=== PATIENT | male | born 1960 | race Caucasian/White ===

== ENCOUNTER 2016-09-24 17:23 | Inpatient (IN) | payer OTHER ==
--- NOTE | ~2016-09-24 | OR ---
Unit #: [id number] #: [id number] Patient: WILLIAM WHITFIELD [id number] [facility] [address] [place], [place] [address] [id number] MR#: [id number] NAME: WILLIAM WHITFIELD ROOM: 452 Date of Procedure: 09/25/2016 Admission Date: 09/24/2016 Surgeon: Gio Lofton M.D. : 1960 Attending Physician: Lisette Herndon M.D. PROCEDURE OPERATIVE NOTE PREOPERATIVE DIAGNOSIS Left hip intertrochanteric fracture. POSTOPERATIVE DIAGNOSIS Left hip intertrochanteric fracture. PROCEDURE PERFORMED Left hip intramedullary nailing. 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 ANESTHESIA General anesthesia. COMPLICATIONS None. ESTIMATED BLOOD LOSS 300 mL. INDICATION FOR SURGERY Mr. Whitfield is a 56-year-old gentleman with history of alcohol abuse, who sustained a left intertrochanteric femur fracture. He had delayed presentation secondary to being put in bed a day after he was fractured. He presented to [facility] Emergency Room, where he was diagnosed with an intertrochanteric femur fracture. He was transferred to [facility], where he was admitted and Orthopedics was consulted for definitive management. Risks and benefits of left intertrochanteric femur fracture were discussed and management was discussed in detail. Risks of fracture, malunion, nonunion, painful hardware, need for hardware removal, avascular necrosis, DVT, PE, need for additional surgery, and . Questions were answered to his satisfaction. Informed consent was obtained and placed in the chart. DESCRIPTION OF PROCEDURE After the patient was identified in preoperative holding area, the operative site was marked. The patient was brought to the operative suite, placed supine on the operating room table. General endotracheal anesthesia was placed uneventfully. Placed on a [place] hip table. The left lower extremity was placed against the longitudinal traction against the perineal post. Closed reduction was performed using C-arm guidance. Unit #: [id number] #: [id number] Patient: WILLIAM WHITFIELD Then, the left lower extremity was prepped and draped in usual sterile fashion. IV antibiotics were infused. Time-out procedure was performed. Then making a 2-inch incision superior to the greater trochanter was made with #10 blade scalpel. The IT band was split longitudinally inline with the incision. Sharp tipped awl was placed in the tip of the greater trochanter and placed in the medullary canal. A ball-tip guidewire was placed, then the trochanteric drill was used to open up the trochanter proximally and the nail was then placed in 125-degree neck angle short nail from Nico, 10 mm in diameter. It was then placed over the guidewire in the appropriate depth. Then, using additional stab incision in the lateral thigh, which was used for splitting the skin and the IT band laterally, and the threaded K-wire was placed to be center to center in both AP and lateral images into the femoral head, measured 95 mm in length. A CareXtend drill was then used to drill up in the femoral head and the lag screw was then placed into the femoral head. Then, traction was taken off the extremity, it was then compressed against the outrigger guide, and the set screw was placed proximally backed off a quarter turn to allow further compression with weightbearing. Following this, the distal cortical screw was made through additional separate incision using C-arm guidance. It measured 30 mm in length and this was placed uneventfully. Final C-arm images were obtained. AP, lateral, and oblique views showed good fracture reduction and hardware placement. The outrigger guide was removed. The wound was copiously irrigated with sterile saline, 0 Vicryl was used to close the fascial layer. A 2-0 Vicryl was used to close the deep dermis, anu used to close the skin. Sterile dressings were applied. He was awakened from anesthesia, returned to recovery room in stable condition. No intraoperative complications. Dictated by... Pako Rodríguez/goldy TD: 09/25/2016 11:06 JOB #: [id number] PROCEDURE OPERATIVE NOTE Page 1 of 1 X Gio Lofton MD X PROCEDURE OPERATIVE NOTE
--- NOTE | ~2016-09-24 | HP ---
Unit #: [id number] #: [id number] Patient: WILLIAM WHITFIELD [id number] [facility] [address] [facility]. [place], [place] [address] [id number] I MR#: [id number] NAME: WILLIAM WHITFIELD ROOM: 327 Age: 56 Sex: M Admission Date: 09/24/2016 : 1960 Attending Physician: Nessa Coe M.D. Primary Care Physician: No Primary Care Physician HISTORY AND PHYSICAL CHIEF COMPLAINT Fall with left femur neck fracture. DISCUSSION This is a 56-year-old gentleman who has a past medical history of hypertension, acid reflux, degenerative disk disease of the spine, peripheral neuropathy, alcohol abuse, tobacco abuse, marijuana abuse. He said he slipped on hardwood floor last night and then his son helped him to bed. Today he woke up and was unable to ambulate with left hip pain, and he came to [facility] ER. He had workup with x-ray of hip showing proximal left femoral neck fracture, and he has been admitted to [facility]. He denied chest pain. He denies fever, chills, coronary artery disease, diabetes. He says he walks many blocks without shortness of breath, although he has chronic back pain and nerve pain. Besides that, no chest pain. He denies any other complaint. PAST MEDICAL HISTORY 1. History of hypertension. 2. Gastroesophageal reflux disease. 3. Peripheral neuropathy/degenerative disk disease of spine. 4. History of alcohol and tobacco abuse. PAST SURGICAL HISTORY Appendectomy. SOCIAL HISTORY He smokes 1 pack daily for 40 years. He uses a 6 pack of alcohol on a daily basis. He uses marijuana on a daily basis. Denies cocaine or IV heroin use, but he uses marijuana on a daily basis. FAMILY HISTORY He said diabetes runs in the family. Mother has heart problems. MEDICATIONS FROM HOME He does not remember the doses. Will call the pharmacy to find his medications from the pharmacy. Unavailable at this time of dictation. REVIEW OF SYSTEMS All review of systems is negative except as in history of present illness. PHYSICAL EXAMINATION GENERAL: Middle-aged man lying in bed comfortably, currently not in any distress. He is alert, awake, oriented x3. Unit #: [id number] #: [id number] Patient: WILLIAM WHITFIELD CURRENT VITALS: Temperature is 98.8, heart rate 97, respiratory rate 20, blood pressure 139/93. HEENT: Pupils are equal and reactive to light. Head is normocephalic and atraumatic. NECK: Neck is supple. No JVD. HEART: S1, S2. Regular rate and rhythm. LUNGS: Lungs are clear to auscultation bilaterally. No rhonchi. No wheezing. ABDOMEN: Abdomen is soft, nontender, nondistended. Bowel sounds are positive. EXTREMITIES: Inspection is normal. No cyanosis. No clubbing. No edema. NEUROLOGIC: Unable to do motor exam secondary to left hip fracture, but cranial nerves II-XII intact. DIAGNOSTIC STUDIES LABORATORY WORKUP: White count is 7.4, hemoglobin 12, hematocrit 35, platelets 112. Chemistry - Sodium 124, potassium 3.5, chloride 93, CO2 21, glucose 92, BUN 7, creatinine 0.8. LFTs - Alkaline phosphatase 116; otherwise, normal LFTs. Urine toxicology is positive for marijuana. UA is negative. His alcohol level is less than 5. IMAGING: X-ray of the left hip shows proximal comminuted, mildly displaced proximal left femoral neck fracture. ASSESSMENT AND PLAN 1. Status post fall with comminuted mildly displaced proximal left femoral neck fracture. Will admit the patient. Ask orthopedics, Dr. Lofton, to evaluate. He was also asked from the emergency room. 2. Thrombocytopenia, most likely secondary to chronic alcohol use. 3. Hyponatremia, most likely secondary to beer potomania. 4. Hypertension. Place on hydralazine on a p.r.n. basis. Find out his home medications. 5. History of gastroesophageal reflux disease. 6. History of degenerative disk disease of spine/peripheral neuropathy. 7. Marijuana use. 8. Alcohol abuse. Will place the patient on Clinical [place] Withdrawal Assessment protocol. 9. Tobacco abuse. 10. Deep vein thrombosis prophylaxis. Will place the patient on Lovenox 40 mg subcu daily. 1. Dictated by Pako Sterling/mike TD: 09/25/2016 11:39 JOB #: [id number] Unit #: [id number] #: [id number] Patient: WILLIAM WHITFIELD HISTORY AND PHYSICAL Page 1 of 1 X X HISTORY AND PHYSICAL
--- NOTE | ~2016-09-24 | CR72 ---
[facility] A Service of [facility] & [facility] RADIOLOGY TEXT RESULTS PATIENT: WILLIAM WHITFIELD LOCATION: [facility] 327-01 : [birth year] UNIT #: [id number] AGE: [address]: Nessa Coe MD SEX: M ORDER DR: [id number] [facility] [address] [facility]. [place], [place] [address] [id number] I MR#: [id number] Acc #: [id number] NAME: WILLIAM WHITFIELD : 1960 SEX: M STUDY DATE/TIME: 09/25/2016 02:06 UNIT: [address] ROOM: [facility] STUDY DESCRIPTION: CR Chest Single View Portable Attending Physician: Nessa Coe M.D. Ordering Physician: Jerry Reyes M.D. Primary Care Physician: Primary Care Physician No MEDICAL IMAGING REPORT This report is preliminary unless electronic signature is present EXAM Portable chest, 09/25 at 02:06 INDICATION Preoperative exam for ORIF of the hip after a fall today. Cough. FINDINGS AP portable views of the chest are compared with 05/07/2014. There is emphysema. Cardiac and mediastinal contours are normal. There are old left side rib fractures that were acute on the prior study. These have not healed contiguously. No pneumothorax. There is a trace amount of left pleural fluid or pleural thickening that is new from the prior study. IMPRESSION Emphysema. New left pleural thickening or pleural scarring since the 2014 exam. There are old left side rib fractures. These appear nonunited. No acute infiltrates. Dictated by... Pedro Vallejo Jr., M.D. THIS IS AN ELECTRONICALLY VERIFIED REPORT Pedro Vallejo Jr., M.D. at 09/25/2016 9:23 PM JETT/theo TD: 09/25/2016 15:24 JOB #: [id number] MEDICAL IMAGING REPORT Page 1 of 1 COPY
--- NOTE | ~2016-09-24 | DS ---
Unit #: [id number] #: [id number] Patient: WILLIAM WHITFIELD [id number] [address] [address] [id number] I MR#: [id number] NAME: WILLIAM WHITFIELD ROOM: 452 Age: 56 Sex: M Admission Date: 09/24/2016 : 1960 Discharge Date: 09/27/2016 Attending Physician: Lisette Herndon M.D. DISCHARGE SUMMARY ADDENDUM The patient's sodium this afternoon returned to 125, which is overall relatively stable. The patient is having no symptoms from this low sodium level. Urine osmolality is most likely consistent with a mild SIADH, which may be a result of his underlying hip surgery. The patient is insisted that he is going home and thus I am going to discharge him home and have followup BMP as noted below. We placed him on a 1500 mL fluid restricted diet. Dictated by... Lisette Herndon M.D. ZORAN/goldy TD: 09/28/2016 18:25 JOB #: [id number] DISCHARGE SUMMARY Page 1 of 1 X Lisette Herndon MD DISCHARGE SUMMARY
--- NOTE | ~2016-09-24 | CO ---
Unit #: [id number] #: [id number] Patient: WILLIAM WHITFIELD [id number] [facility] [address] [facility]. [place], [place] [address] [id number] I MR#: [id number] NAME: WILLIAM WHITFIELD ROOM: 327 Age: 56 Sex: M Admission Date: 09/24/2016 : 1960 Attending Physician: Nessa Coe M.D. Consultation Date: 09/25/2016 CONSULTATION REPORT CHIEF COMPLAINT Left hip pain. HISTORY OF PRESENT ILLNESS Mr. Whitfield is a 56-year-old gentleman, who fell on a hardwood floor. He was unable to ambulate. His son helped him in the bed. Date of injury was on 09/23/2016. When he woke up, he was complaining of continued left hip pain and was brought to [facility] Emergency room for further workup and treatment. X-rays were obtained, which showed a comminuted left intertrochanteric femur fracture. Orthopedics was consulted. The patient was initially seen at [facility] and was transferred to [facility] for definitive management. PAST MEDICAL HISTORY Significant for alcohol abuse, hypertension, COPD, hyponatremia, gastroesophageal reflux disease, marijuana abuse, and thrombocytopenia. PAST SURGICAL HISTORY Appendectomy. HOME MEDICATIONS Reviewed. See the MAR. ALLERGIES No known drug allergies. REVIEW OF SYSTEMS Positive for left hip pain. PHYSICAL EXAMINATION GENERAL: Demonstrates a 56-year-old gentleman, who appears older than stated age. HEENT: Normocephalic, atraumatic. He is missing multiple teeth in his mouth. His trachea is midline. No JVD is present. No palpable lymphadenopathy. CHEST: Normal chest wall movement without extra wheeze. HEART: Regular rate and rhythm. ABDOMEN: Soft, then nondistended. MUSCULOSKELETAL: Demonstrates left hip is externally rotated and shortened. Positive log roll. The skin over his left hip is clean, dry, and intact. There are no signs of infection. He is able to wiggle his toes distally, palpable dorsalis pedis, and posterior tibial pulses. Unit #: [id number] #: [id number] Patient: WILLIAM WHITFIELD DIAGNOSTIC STUDIES IMAGING STUDIES: X-rays of the left hip were reviewed, obtained at [facility] demonstrates a displaced intertrochanteric femur fracture, which is comminuted. IMPRESSION Left intertrochanteric femur fracture and individual with history of alcohol abuse and marijuana use. PLAN Discussed treatment options. Recommend intramedullary nailing. This would help stabilize fracture. Unfortunately, the patient has received Lovenox 40 mg, which will increase intraoperative blood loss, though given his hip fracture and relative urgency, we will proceed with some elevated blood loss risk. The risks and benefits of surgical intervention were discussed in detail. Risks of DVT, PE, blood loss, requiring blood transfusions, fracture malunion, nonunion, painful hardware, need for hardware removal, possible conversion to another surgery. He voiced understanding and wished to proceed. Informed consent will be obtained. Dictated by... Gio Lofton M.D. JAMARI/goldy TD: 09/25/2016 14:24 JOB #: [id number] CONSULTATION REPORT Page 1 of 1 X Gio Lofton MD X CONSULTATION REPORT
--- NOTE | ~2016-09-24 | EKG ---
PATIENT: WILLIAM WHITFIELD UNIT #: [id number] Ventricular Rate: 97 BPM Atrial Rate: 97 BPM P-R Interval: 174 ms QRS Duration: 78 ms Q-T Interval: 346 ms QTC Calculation(Bezet): 439 ms P Dryden: 57 degrees Calculated R Dryden: 31 degrees Calculated T Dryden: 62 degrees Diagnosis Line: Normal sinus rhythm Diagnosis Line: Normal ECG Diagnosis Line: When compared with ECG of 08-MAR-2012 14:39, Diagnosis Line: No significant change was found Diagnosis Line: Confirmed by PRANAV JIANG MD ([id number]) on Diagnosis Line: 09/26/2016 8:20:46 PM INTERPRETING MD: ALEX
--- NOTE | ~2016-09-24 | DS ---
Unit #: [id number] #: [id number] Patient: WILLIAM WIHTFIELD [id number] [address] [address] [id number] I MR#: [id number] NAME: WILLIAM WHITFIELD ROOM: 452 Age: 56 Sex: M Admission Date: 09/24/2016 : 1960 Discharge Date: 09/27/2016 Attending Physician: Lisette Herndon M.D. DISCHARGE SUMMARY PRIMARY CARE PROVIDER None. PRINCIPAL DIAGNOSES 1. Comminuted left femoral neck fracture, status post Gamma Nail placement. 2. Hyponatremia secondary to beer man's potomania. 3. Osteoporosis. 4. Hypertension. 5. Chronic obstructive pulmonary disease. 6. Gastroesophageal reflux disease. 7. Marijuana use. 8. Peripheral neuropathy secondary to lumbar degenerative disk disease. 9. Chronic alcohol abuse without evidence of withdrawal. 10. Tobaccoism. 11. Hypomagnesemia. 12. Alcohol-induced thrombocytopenia, discharge platelet count 127. 13. Moderate protein malnutrition. 14. Acute postop blood-loss anemia with discharge hemoglobin of 9.2. SMART ENERGY SPECIALIST Dr. Lofton of Orthopedics. PROCEDURES 1. Left hip intramedullary nail placed on 09/25/2016 this occurred without complication. 2. X-ray of left hip on 09/24/2016 with a comminuted mildly displaced fracture involving left proximal femoral shaft extending into the intertrochanteric region. No left hip dislocation. 3. Chest x-ray on 09/25/2016 with changes of COPD. There was left pleural thickening and scarring, old left-sided rib fractures. CLINICAL HISTORY AND HOSPITAL COURSE Mr. Whitfield is a 56-year-old male, who presents to the emergency department with left hip pain after he fall at home. The patient was unable to ambulate the morning after the fall and subsequently brought to the emergency department. Chest x-ray revealed left femoral neck fracture and the patient was subsequently admitted. Orthopedics was consulted and the patient subsequently underwent intramedullary nailing. Postoperatively, the patient has done very well. He is ambulating well with a walker and at this time refusing subacute rehab. We will arrange for a walker and PT at home. I will note that I Unit #: [id number] #: [id number] Patient: WILLIAM WHITFIELD have encouraged him strongly to reconsider subacute rehab. Upon presentation, the patient was also found to have hyponatremia with a presenting sodium level of 124 with IV hydration sodium increased to 129, but the following day dropped again. Urine osmolality is currently pending. The patient has been taken off IV fluids and at the time of discharge his sodium was 126. Review of records indicate the patient has a chronic hyponatremia with a sodium level generally of 128 to 129. This is likely secondary to beer man's potomania. I will recheck sodium level this afternoon as long as they are stable and/or increasing, I think he can be safely followed up on an outpatient basis. He has been counseled regarding his alcohol use and need to cut down. We also note, he had no evidence of withdrawal during hospitalization. The patient was also found to be thrombocytopenic upon presentation with a presenting platelet level of 112 with alcohol cessation this level has gradually increased and again he can be followed up as an outpatient. The patient also had some mild acute blood loss anemia. His presenting hemoglobin was 12.6, on day of discharge it is now down to 9.2. He might have a mild left thigh hematoma and again this can be monitored on an outpatient basis. Assuming the patient continues to refuse subacute rehab and sodium is stable and/or improving and I think he can be safely discharged to home with close followup. DISCHARGE CONDITION Stable. DISCHARGE STATUS Discharged home with home health. DISCHARGE MEDICATIONS Lovenox 40 mg subcutaneously daily, to stop after dose on 10/10/2016; Neurontin 600 mg p.o. t.i.d.; Ventolin inhaler 2 puffs t.i.d. p.r.n. for shortness of breath; Norvasc 5 mg daily; Breo Ellipta 100/25 mcg one puffs daily; Prinivil 20 mg daily; ferrous sulfate 325 mg daily; Percocet 10/325 one tablet p.o. q.4 hours p.r.n. pain number given 45; Prilosec 40 mg daily; Os-Rosendo 500+D one tablet b.i.d.; vitamin B complex tablet one daily; and MAGnesium-Oxide 400 mg p.o. b.i.d. for 5 days. DISCHARGE INSTRUCTIONS The patient instructed to follow a regular diet. He should refrain from any further alcohol use. He is weightbearing as tolerated in his left lower extremity. He should also refrain from any further tobacco use. FOLLOWUP The patient will follow up with Dr. Lombardo in 2 weeks. The skin anu are to be removed at followup visit. Steri-Strips to be placed afterwards approximately current part. He should not shower until the day after his staple removal. He should wear RACHEL hose during the day and then off at night. The patient can follow up with his primary care provider in approximately 2 weeks. The patient have followup BMP done on Monday09/30/2016. Time spent on discharge today 34 minutes. Unit #: [id number] #: [id number] Patient: WILLIAM WHITFIELD Dictated by... Pako Akhtar/goldy TD: 09/29/2016 06:03 JOB #: [id number] DISCHARGE SUMMARY Page 1 of 1 X Lisette Herndon MD X DISCHARGE SUMMARY
--- NOTE | ~2016-09-24 | CR150 ---
[facility] A Service of [facility] & [facility] RADIOLOGY TEXT RESULTS PATIENT: WILLIAM WHITFIELD LOCATION: [facility] 327- : [birth year] UNIT #: [id number] AGE: [address]: Nessa Coe MD SEX: M ORDER DR: [id number] [facility] [address] [facility]. [place], [place] [address] [id number] I MR#: [id number] Acc #: [id number] NAME: WILLIAM WHITFIELD : 1960 SEX: M STUDY DATE/TIME: 09/25/2016 9:03 UNIT: [address] ROOM: [facility] STUDY DESCRIPTION: CR Hip Min 2 Views Lt Attending Physician: Nessa Coe M.D. Ordering Physician: Gio Lofton M.D. Primary Care Physician: Primary Care Physician No MEDICAL IMAGING REPORT This report is preliminary unless electronic signature is present EXAM Left hip, 2 views HISTORY Left hip pinning intraoperatively. COMMENT Three fluoroscopic images labeled "left hip" are submitted for retrospective review. These were obtained by Dr. Lofton intraoperatively during ORIF known left hip fracture. Fluoroscopy time 47 seconds. IMPRESSION Three fluoroscopic images left hip submitted for retrospective review obtained during ORIF left hip by Dr. Lofton. 47 seconds fluoroscopy time. Dictated by... Peggy Fowler M.D. THIS IS AN ELECTRONICALLY VERIFIED REPORT Peggy Fowler M.D. at 09/26/2016 7:54 AM KEON/psc TD: 09/25/2016 19:29 JOB #: [id number] MEDICAL IMAGING REPORT Page 1 of 1 COPY
--- NOTE | ~2016-09-24 | CR150 ---
[facility] A Service of [facility] & [facility] RADIOLOGY TEXT RESULTS PATIENT: WILLIAM WHITFIELD LOCATION: [place] [address] : [birth year] UNIT #: [id number] AGE: [address]: Lisette Herndon MD SEX: M ORDER DR: [id number] [address] [address] [id number] I MR#: [id number] Acc #: [id number] NAME: WILLIAM WHITFIELD : 1960 SEX: M STUDY DATE/TIME: 09/24/2016 17:55 UNIT: SEDOF ROOM: [facility] STUDY DESCRIPTION: CR Hip Min 2 Views Lt Attending Physician: Nessa Coe M.D. Ordering Physician: Mercedes Travis Pa-C Primary Care Physician: Primary Care Physician No MEDICAL IMAGING REPORT This report is preliminary unless electronic signature is present. EXAM Left hip series dated 09/24/2016 COMPARISON None. HISTORY Patient fell last evening. Left hip and left leg pain. FINDINGS Attempted 2 views of the left hip demonstrate comminuted mildly displaced fracture involving the proximal left femoral shaft extending to the intertrochanteric region. Displacement of the fracture fragments is noted slightly. There is probably adjacent soft tissue swelling. No left hip dislocation. Remaining bones do not demonstrate any significant abnormality. Dictated by... Amanda Kinney M.D. THIS IS AN ELECTRONICALLY VERIFIED REPORT Amanda Kinney M.D. at 09/26/2016 7:31 PM CPR/rnr TD: 09/25/2016 01:37 JOB #: [id number] MEDICAL IMAGING REPORT Page 1 of 1
[~2016-09-24 17:23] MED LIST: HYDROCODONE-A1 UDTA4 PO; IRON1 TAB PO; NORCO 7.5-3251 EACH PO; PERCOCET5/325 PO; PREDNISONE10 MG/DOSE PO; PRILOSEC; PRILOSEC PO; PRINIVIL20 M1 PO; ROBAXIN500 MG PO; VITAMIN; VOLTAREN75 MG PO; [UNRECOGNIZED DRUG - REMARK]
[2016-09-24 18:19] LABS: URINE SOURCE CLEAN CATCH
[2016-09-24 18:23] LABS: URINE APPEARANCE CLEAR; URINE BILIRUBIN NEG (NEG); URINE BLOOD NEG (NEG); URINE COLOR YELLOW; URINE GLUCOSE NEG (NORM); URINE KETONE TRACE (NEG); URINE LEUKOCYTE ESTERASE NEG (NEG); URINE NITRATE NEG (NEG); URINE PROTEIN NEG (NEG); URINE SPECIFIC GRAVITY <=1.005 (1.003-1.035); URINE UROBILINOGEN >=8.0 MG/DL (NORM)
[2016-09-24 18:25] LABS: MICRO INDICATED? NO
[2016-09-24 19:01] LABS: AMPHETAMINE NEG (NEG); BARBITURATES NEG (NEG); BENZODIAZEPINES NEG (NEG); COCAINE NEG (NEG); MARIJUANA POS (NEG); OPIATES NEG (NEG); TRICYCLIC ANTIDEPRESSANTS NEG (NEG); U METHADONE NEG (NEG)
[2016-09-24 20:04] LABS: BASOPHIL% 0.4 % (0-2.5); HEMATOCRIT 35.7 % (38.0-50.0); HEMOGLOBIN 12.6 gm/dL (13.0-16.0); LYMPHOCYTE# 0.4 X10e3 (1.0-3.5); LYMPHOCYTE% 5.2 % (17.0-45.0); MEAN CELL VOLUME 97.8 FL (83-96); MEAN CORPUSCULAR HEMOGLOBIN 34.6 PG (28-34); MEAN CORPUSCULAR HGB CONC 35.3 g/dL (30-36); MEAN PLATELET VOLUME 7.7 FL (6.5-11.5); MONOCYTE% 13.3 % (3.0-12.0); NEUTROPHIL% 81.1 % (40-75); PLATELET COUNT 112 X10e3 (140-420); RED BLOOD COUNT 3.64 X10e (3.90-5.60); RED CELL DISTRIBUTION WIDTH 15.8 % (11.0-15.5); WHITE BLOOD COUNT 7.4 X10e3 (4.0-10.5)
[2016-09-24 20:10] LABS: DIFF IND NO
[2016-09-24 20:33] LABS: ALBUMIN SERUM 3.3 g/dL (3.5-5.0); ALCOHOL BLOOD <5 mg/dL (0); ALKALINE PHOSPHATASE 116 U/L (32-92); ALT (SGPT) 18 U/L (10-40); AST (SGOT) 39 U/L (10-42); BLOOD UREA NITROGEN 7 mg/dL (9-23); BUN/CREATININE RATIO 8.75; CARBON DIOXIDE 21 mmol/L (22-31); CHLORIDE 93 mmol/L (100-111); CREATININE SERUM 0.8 mg/dL (0.6-1.4); GLOM FILT RATE Estimated 101.3 mL/min (>60); GLUCOSE FASTING 92 mg/dL (70-110); POTASSIUM 3.5 mmol/L (3.5-5.1); PROTEIN TOTAL SERUM 7.1 g/dL (6.0-8.3); SODIUM 124 mmol/L (135-145)
[2016-09-24] MEDS ORDERED: PRINIVIL20 M1 PO (23:00)
[2016-09-24] MEDS ORDERED: GABAPENTIN600 MG PO (23:00)
[2016-09-24] MEDS ORDERED: AMLODIPINE BESYL5 MG PO (23:01)
[2016-09-24] MEDS ORDERED: FERRO-TIME325 MG PO (23:01)
[2016-09-24] MEDS ORDERED: BREO ELLIPTA 11 EACH INH (23:03)
[2016-09-24] MEDS ORDERED: PRILOSEC PO (23:03)
[2016-09-24] MEDS ORDERED: VITAMIN B COMP1 EACH PO (23:03)
[2016-09-24] MEDS ORDERED: ALBUTEROL17 GM INH (23:04)
[2016-09-25 06:15] LABS: BASOPHIL% 0.5 % (0-2.5); EOSINOPHIL% 0.1 % (0.0-7.0); HEMATOCRIT 32.7 % (38.0-50.0); HEMOGLOBIN 11.2 gm/dL (13.0-16.0); LYMPHOCYTE# 0.7 X10e3 (1.0-3.5); LYMPHOCYTE% 11.1 % (17.0-45.0); MEAN CELL VOLUME 99.1 FL (83-96); MEAN CORPUSCULAR HEMOGLOBIN 33.9 PG (28-34); MEAN CORPUSCULAR HGB CONC 34.2 g/dL (30-36); MEAN PLATELET VOLUME 8.1 FL (6.5-11.5); MONOCYTE# 0.8 X10e3 (0-1.0); MONOCYTE% 12.8 % (3.0-12.0); NEUTROPHIL# 4.7 X10e3 (1.5-7.1); NEUTROPHIL% 75.5 % (40-75); PLATELET COUNT 111 X10e3 (140-420); RED BLOOD COUNT 3.29 X10e (3.90-5.60); RED CELL DISTRIBUTION WIDTH 15.8 % (11.0-15.5); WHITE BLOOD COUNT 6.2 X10e3 (4.0-10.5)
[2016-09-25 06:17] LABS: DIFF IND NO
[2016-09-25 06:20] LABS: PROTHROMBIN TIME (PATIENT) 11.2 SECONDS (10.0-11.7)
[2016-09-25 08:30] LABS: ALBUMIN SERUM 2.9 g/dL (3.5-5.0); BILIRUBIN,TOTAL 0.8 mg/dL (0.2-2.0); CALCIUM SERUM 8.1 mg/dL (8.4-10.2); CREATININE SERUM 0.6 mg/dL (0.6-1.4); POTASSIUM 3.9 mmol/L (3.5-5.1); PROTEIN TOTAL SERUM 6.6 g/dL (6.0-8.3)
[2016-09-25 08:38] LABS: THYROID STIMULATING HORMONE 1.63 uIU/ml (0.34-5.60)
[2016-09-25 08:45] LABS: FREE THYROXIN (T4) 0.92 ng/dL (0.58-1.64)
[2016-09-26 06:40] LABS: HEMATOCRIT 29.7 % (38.0-50.0); HEMOGLOBIN 9.9 gm/dL (13.0-16.0); MEAN CELL VOLUME 101.7 FL (83-96); MEAN CORPUSCULAR HGB CONC 33.4 g/dL (30-36); MEAN PLATELET VOLUME 8.4 FL (6.5-11.5); RED BLOOD COUNT 2.92 X10e (3.90-5.60); RED CELL DISTRIBUTION WIDTH 15.4 % (11.0-15.5); WHITE BLOOD COUNT 9.2 X10e3 (4.0-10.5)
[2016-09-26 07:25] LABS: BLOOD UREA NITROGEN <5 mg/dL (9-23); BUN/CREATININE RATIO 7.14; CALCIUM SERUM 8.2 mg/dL (8.4-10.2); CARBON DIOXIDE 23 mmol/L (22-31); CHLORIDE 97 mmol/L (100-111); CREATININE SERUM 0.7 mg/dL (0.6-1.4); GLUCOSE FASTING 105 mg/dL (70-110); POTASSIUM 5.2 mmol/L (3.5-5.1)
[2016-09-26 07:29] LABS: SODIUM 124 mmol/L (135-145)
[2016-09-26 15:23] LABS: BUN/CREATININE RATIO 6.25; CALCIUM SERUM 7.8 mg/dL (8.4-10.2); CREATININE SERUM 0.8 mg/dL (0.6-1.4); GLOM FILT RATE Estimated 101.3 mL/min (>60); POTASSIUM 4.7 mmol/L (3.5-5.1)
[2016-09-27 03:33] LABS: HEMATOCRIT 26.6 % (38.0-50.0); HEMOGLOBIN 9.2 gm/dL (13.0-16.0); MEAN CELL VOLUME 100.3 FL (83-96); MEAN CORPUSCULAR HEMOGLOBIN 34.9 PG (28-34); MEAN CORPUSCULAR HGB CONC 34.8 g/dL (30-36); MEAN PLATELET VOLUME 7.7 FL (6.5-11.5); RED BLOOD COUNT 2.65 X10e (3.90-5.60); RED CELL DISTRIBUTION WIDTH 15.1 % (11.0-15.5); WHITE BLOOD COUNT 8.4 X10e3 (4.0-10.5)
[2016-09-27 04:17] LABS: BLOOD UREA NITROGEN <5 mg/dL (9-23); BUN/CREATININE RATIO 7.14; CALCIUM SERUM 7.8 mg/dL (8.4-10.2); CARBON DIOXIDE 23 mmol/L (22-31); CHLORIDE 96 mmol/L (100-111); CREATININE SERUM 0.7 mg/dL (0.6-1.4); GLUCOSE FASTING 81 mg/dL (70-110); MAGNESIUM 1.4 mg/dL (1.6-3.0); POTASSIUM 3.5 mmol/L (3.5-5.1); SODIUM 126 mmol/L (135-145)
[2016-09-27] MEDS ORDERED: LOVENOX40 MG/0.4 SUBQ (11:12)
[2016-09-27] MEDS ORDERED: MAGNESIUM400 M1 PO (11:13)
[2016-09-27] MEDS ORDERED: PERCOCET10 PO (11:14)
[2016-09-27] MEDS ORDERED: CALCIUM 500 +1 EAC5 PO (11:19)
[2016-09-27 13:05] LABS: BLOOD UREA NITROGEN <5 mg/dL (9-23); BUN/CREATININE RATIO 7.14; CARBON DIOXIDE 24 mmol/L (22-31); CHLORIDE 92 mmol/L (100-111); CREATININE SERUM 0.7 mg/dL (0.6-1.4); GLUCOSE FASTING 97 mg/dL (70-110)
[2016-09-27 13:10] LABS: SODIUM 125 mmol/L (135-145)
== END 2016-09-27 16:16 | disposition home health service (06) | DRG 481 ==
LOC: SED 17:23 → SEDOF 19:21 → C3A PCU 19:21 → SED 19:21 → SEDOF 19:22 → C4B 19:22 → C3A PCU 19:22 → C4B 09-26 18:21 → EDBD 09-27 16:16
PROVIDERS: Family Medicine; Internal Medicine; Physician Assistant Medical; Specialist
PROC: 0QS736Z Reposition Left Upper Femur with Intramedullary Internal Fixation Device, Percutaneous Approach (ICD-10-PCS; principal; 2016-09-25 10:00)
DX: S72.142A Displaced intertrochanteric fracture of left femur, initial encounter for closed fracture (principal); E87.1 Hypo-osmolality and hyponatremia; D69.59 Other secondary thrombocytopenia; E44.0 Moderate protein-calorie malnutrition; G62.9 Polyneuropathy, unspecified; E83.42 Hypomagnesemia; M81.0 Age-related osteoporosis without current pathological fracture; I10 Essential (primary) hypertension; K21.9 Gastro-esophageal reflux disease without esophagitis; F10.10 Alcohol abuse, uncomplicated; F17.210 Nicotine dependence, cigarettes, uncomplicated; F12.10 Cannabis abuse, uncomplicated; Z83.3 Family history of diabetes mellitus; J44.9 Chronic obstructive pulmonary disease, unspecified; D64.9 Anemia, unspecified; M51.36 Other intervertebral disc degeneration, lumbar region
CPT/HCPCS: 36415; 71010; 73502; 76001; 80048; 80053; 80307; 81003; 82607; 83735; 83880; 83935; 84100; 84439; 84443; 85025; 85027; 85610; 86592; 90732; 93005; 94640; 94664; 94760; 96361; 96374; 96375; 97110; 97116; 97161; 97530; 99284; G0009; G0480; G8978-GP; G8979-GP; G8980-GP; J0690; J1170; J1650; J2060; J2250; J2405; J3010; J3411; J3475; J3480; J7042